=== PATIENT | female | born 1955 | race African-American/Black ===

== ENCOUNTER 2020-06-10 05:48 | Inpatient (IN) | payer MEDICAID, OTHER ==
[2020-06-10] VITALS (43 sets, daily range): BP systolic 86–178; BP diastolic 55–88
[~2020-06-10] VITALS: Ht 165.1 cm; Wt 80.9 kg
[2020-06-10 06:19] LABS: BASOPHILS % 0.5 % (0.0-2.0); EOSINOPHILS % 1.1 % (0.0-5.0); HEMATOCRIT. 58.6 % (36.0-48.0); HEMOGLOBIN. 18.3 g/dL (12.0-16.0); LYMPHOCYTES % 64.1 % (20.0-50.0); MEAN CORPUSCULAR HEMOGLOBIN 29.5 pg (28.0-32.0); MEAN CORPUSCULAR VOLUME 94.2 fL (81.0-99.0); MONOCYTES % 9.4 % (2.0-8.0); NEUTROPHILS % 24.9 % (40.0-76.0); PLATELET 275 x1000/uL (130-400); RED BLOOD CELL COUNT 6.22 mill/uL (4.2-5.4); RED CELL DISTRIBUTION WIDTH 14.7 % (11.6-14.6)
[2020-06-10] MEDS ORDERED: PROPOFOL 10MG/ML 100ML 100 ML IV ONE (06:30)
[2020-06-10] MEDS ORDERED: SUCCINYLCHOLINE CHLORIDE 200MG/10ML IV ONE (06:30)
[2020-06-10] MEDS ORDERED: ETOMIDATE 2MG/ML 10ML VIAL IV ONE (06:30)
[2020-06-10 06:36] LABS: CHLORIDE 106 mEq/L (98-107)
[2020-06-10] MEDS ORDERED: KCL 20MEQ/100ML PREMIX 100 ML IV ONE (07:00)
[2020-06-10] MEDS ORDERED: FENTANYL CITRATE/PF 1,000 MCG in SODIUM CHLORIDE 0.9% 80 ML IV PRN (07:30)
[2020-06-10] MEDS ORDERED: FENTANYL CITRATE 2,500 MCG in SODIUM CHLORIDE 0.9% 200 ML IV PRN (07:45)
[2020-06-10] MEDS ORDERED: LIDOCAINE HCL 1% 20ML VIAL (Pyxis) INJ ONE (10:20)
[2020-06-10] MEDS ORDERED: ONDANSETRON HCL 4MG/2ML INJ IV PRN (12:45)
[2020-06-10] MEDS ORDERED: IPRATROPIUM/ALBUTEROL 0.5-3(2.5)MG/3ML NEB HHN PRN ×2 (12:45→13:15)
[2020-06-10] MEDS ORDERED: ACETAMINOPHEN 650MG SUPP PR PRN ×2 (12:45)
[2020-06-10] MEDS ORDERED: DIPHENHYDRAMINE 50MG/ML VIAL IV PRN (12:45)
[2020-06-10] MEDS ORDERED: LORAZEPAM 2MG/ML CPJ IV PRN (12:45)
[2020-06-10 12:53] LABS: BG BASE EXCESS -3.3 mmol/L (-2.0-2.0); BG CARBOXYHEMOGLOBIN 0.3 % (0.5-1.5); BG DEOXYHEMOGLOBIN 0.7 % (0.0-5.0); BG METHEMOGLOBIN 0.3 % (0.0-1.5); BG OXYGEN SATURATION 99.3 % (92.0-98.5); BG OXYHEMOGLOBIN 98.7 % (94.0-97.0); BG PCO2 35.9 mmHg (35.0-45.0); BG PH 7.384 (7.350-7.450); BG PO2 283.2 mmHg (75.0-100.0); BG SAMPLE SITE RIGHT RADIAL; BG TOTAL HEMOGLOBIN 16.6 g/dL (12.0-18.0); BG VENT MODE VENT - AC
[2020-06-10] MEDS: ENOXAPARIN 40MG/0.4ML SYR SUBCUT SCH (14:10)
[2020-06-10] MEDS: IPRATROPIUM/ALBUTEROL 0.5-3(2.5)MG/3ML NEB HHN SCH (14:33)
[2020-06-10] MEDS: PROPOFOL 10MG/ML 100ML 100 ML IV PRN ×3 (15:17→23:55)
[2020-06-10] MEDS: DEXT 5%/0.45% NACL KCL 40MEQ/L 1,000 ML IV SCH (16:28)
[2020-06-10 17:15] LABS: CLARITY URINE TURBID (CLEAR); COLOR URINE YELLOW (YELLOW); KETONES URINE TRACE (NEGATIVE); LEUKOCYTE ESTERASE URINE 2+ (NEGATIVE); NITRITE URINE NEGATIVE (NEGATIVE); OCCULT BLOOD URINE 3+ (NEGATIVE); PROTEIN URINE 1+ (NEGATIVE); SPECIFIC GRAVITY URINE 1.027 (1.005-1.030); UROBILINOGEN URINE 0.2 E.U./dL (0.2-1.0)
[2020-06-10] MEDS: FUROSEMIDE 40MG/4ML VIAL IVP SCH (17:15)
[2020-06-10 17:33] LABS: *AMPHETAMINES SCREEN URINE NEGATIVE (NEGATIVE); *BARBITURATES SCREEN URINE NEGATIVE (NEGATIVE); *BENZODIAZEPINES SCREEN URINE NEGATIVE (NEGATIVE); *COCAINE SCREEN URINE NEGATIVE (NEGATIVE); METHADONE URINE SCREEN NEGATIVE (NEGATIVE); OPIATES URINE SCREEN NEGATIVE (NEGATIVE)
[2020-06-10 17:34] LABS: CANNABINOID URINE SCREEN NEGATIVE (NEGATIVE); PHENCYCLIDINE URINE SCREEN NEGATIVE (NEGATIVE)
[2020-06-10 20:14] LABS: PROTHROMBIN TIME 11.2 sec (9.6-11.0)
[2020-06-11] VITALS (58 sets, daily range): BP systolic 82–172; BP diastolic 52–85
[2020-06-11] MEDS: IPRATROPIUM/ALBUTEROL 0.5-3(2.5)MG/3ML NEB HHN SCH ×4 (00:43→20:30)
[2020-06-11] MEDS: PROPOFOL 10MG/ML 100ML 100 ML IV PRN ×3 (03:59→18:17)
[2020-06-11 06:17] LABS: BASOPHILS % 0.5 % (0.0-2.0); EOSINOPHILS % 0.4 % (0.0-5.0); HEMATOCRIT. 41.7 % (36.0-48.0); LYMPHOCYTES % 19.5 % (20.0-50.0); MEAN CORPUSCULAR HEMOGLOBIN 29.6 pg (28.0-32.0); MEAN PLATELET VOLUME 8.6 fl (7.4-10.4); NEUTROPHILS % 69.6 % (40.0-76.0); PLATELET 201 x1000/uL (130-400); RED BLOOD CELL COUNT 4.74 mill/uL (4.2-5.4); RED CELL DISTRIBUTION WIDTH 14.5 % (11.6-14.6)
[2020-06-11 06:32] LABS: CHLORIDE 108 mEq/L (98-107)
[2020-06-11 06:41] LABS: PHOSPHORUS 3.1 mg/dL (2.5-4.9)
[2020-06-11] MEDS: FUROSEMIDE 40MG/4ML VIAL IVP SCH ×2 (08:23→17:22)
[2020-06-11 08:47] LABS: BG CARBOXYHEMOGLOBIN 0.2 % (0.5-1.5); BG FRACTION INSPIRED OXYGEN 40; BG HCO3 ACT 20.5 mmol/L (22.0-26.0); BG METHEMOGLOBIN 0.2 % (0.0-1.5); BG OXYHEMOGLOBIN 97.6 % (94.0-97.0); BG PCO2 32.5 mmHg (35.0-45.0); BG PH 7.418 (7.350-7.450); BG PO2 107.4 mmHg (75.0-100.0); BG SAMPLE SITE RIGHT BRACHIAL; BG TOTAL HEMOGLOBIN 14.9 g/dL (12.0-18.0); BG VENT MODE VENT - AC
[2020-06-11] MEDS: ENOXAPARIN 40MG/0.4ML SYR SUBCUT SCH (09:35)
[2020-06-11] MEDS ORDERED: ENOXAPARIN 40MG/0.4ML SYR SUBCUT SCH (10:00)
[2020-06-11] MEDS: ASPIRIN 81MG EC TABLET PO SCH (10:21)
[2020-06-11] MEDS: DEXT 5%/0.45% NACL KCL 40MEQ/L 1,000 ML IV SCH (12:38)
[2020-06-11] MEDS: FENTANYL CITRATE/PF 2,500 MCG in SODIUM CHLORIDE 0.9% 200 ML IV PRN (12:38)
[2020-06-11] MEDS ORDERED: PROPOFOL 10MG/ML 100ML 100 ML IV PRN (18:15)
[2020-06-11] MEDS: ATORVASTATIN CALCIUM 40MG TABLET PO SCH (20:45)
[2020-06-11] MEDS ORDERED: ACETAMINOPHEN 650MG/20.3ML UDC PO PRN (20:45)
[2020-06-11] MEDS: ENOXAPARIN 80MG/0.8ML SYR SUBCUT SCH (20:46)
[2020-06-11] MEDS ORDERED: ACETAMINOPHEN 650MG/20.3ML UDC ONE (20:52)
[2020-06-11] MEDS: ACETAMINOPHEN 650MG/20.3ML UDC PO PRN (21:00)
[2020-06-12] VITALS (51 sets, daily range): BP systolic 84–213; BP diastolic 47–131
[2020-06-12] MEDS: IPRATROPIUM/ALBUTEROL 0.5-3(2.5)MG/3ML NEB HHN SCH ×4 (03:11→19:54)
[2020-06-12] MEDS: PROPOFOL 10MG/ML 100ML 100 ML IV PRN ×2 (03:36→08:29)
[2020-06-12] MEDS: DEXT 5%/0.45% NACL KCL 40MEQ/L 1,000 ML IV SCH (03:53)
[2020-06-12 05:52] LABS: BASOPHILS % 0.7 % (0.0-2.0); EOSINOPHILS % 0.4 % (0.0-5.0); HEMATOCRIT. 39.8 % (36.0-48.0); HEMOGLOBIN. 13.4 g/dL (12.0-16.0); LYMPHOCYTES % 15.9 % (20.0-50.0); MEAN CORPUSCULAR HEMOGLOBIN 29.9 pg (28.0-32.0); MEAN CORPUSCULAR VOLUME 88.6 fL (81.0-99.0); MEAN PLATELET VOLUME 9.2 fl (7.4-10.4); MONOCYTES % 10.9 % (2.0-8.0); NEUTROPHILS % 72.1 % (40.0-76.0); PLATELET 177 x1000/uL (130-400); RED BLOOD CELL COUNT 4.49 mill/uL (4.2-5.4); RED CELL DISTRIBUTION WIDTH 14.6 % (11.6-14.6)
[2020-06-12 05:58] LABS: CHLORIDE 106 mEq/L (98-107)
[2020-06-12] MEDS: ACETAMINOPHEN 650MG/20.3ML UDC PO PRN (07:16)
[2020-06-12] MEDS: FENTANYL CITRATE/PF 2,500 MCG in SODIUM CHLORIDE 0.9% 200 ML IV PRN (08:27)
[2020-06-12] MEDS: ENOXAPARIN 80MG/0.8ML SYR SUBCUT SCH ×2 (08:30→20:30)
[2020-06-12] MEDS: FUROSEMIDE 40MG/4ML VIAL IVP SCH ×2 (08:30→16:10)
[2020-06-12] MEDS: ASPIRIN 81MG EC TABLET PO SCH (08:32)
[2020-06-12 09:14] LABS: BG BASE EXCESS -1.5 mmol/L (-2.0-2.0); BG CARBOXYHEMOGLOBIN 1.1 % (0.5-1.5); BG DEOXYHEMOGLOBIN 1.2 % (0.0-5.0); BG FRACTION INSPIRED OXYGEN 35; BG HCO3 ACT 22.7 mmol/L (22.0-26.0); BG METHEMOGLOBIN 0.3 % (0.0-1.5); BG OXYGEN SATURATION 98.8 % (92.0-98.5); BG OXYHEMOGLOBIN 97.4 % (94.0-97.0); BG PCO2 36.7 mmHg (35.0-45.0); BG PH 7.409 (7.350-7.450); BG PO2 127.5 mmHg (75.0-100.0); BG SAMPLE SITE RIGHT BRACHIAL; BG TOTAL HEMOGLOBIN 13.7 g/dL (12.0-18.0); BG VENT MODE VENT - AC
[2020-06-12] MEDS ORDERED: KCL 10MEQ/50ML PREMIX 50 ML IV ONE ×2 (09:30→10:45)
[2020-06-12 12:56] LABS: BG BASE EXCESS 0.4 mmol/L (-2.0-2.0); BG CARBOXYHEMOGLOBIN 0.2 % (0.5-1.5); BG DEOXYHEMOGLOBIN 4.9 % (0.0-5.0); BG FRACTION INSPIRED OXYGEN 35; BG METHEMOGLOBIN 0.4 % (0.0-1.5); BG OXYGEN SATURATION 95.1 % (92.0-98.5); BG OXYHEMOGLOBIN 94.5 % (94.0-97.0); BG PCO2 45.2 mmHg (35.0-45.0); BG PH 7.377 (7.350-7.450); BG PO2 74.4 mmHg (75.0-100.0); BG SAMPLE SITE RIGHT RADIAL; BG TOTAL HEMOGLOBIN 15.7 g/dL (12.0-18.0); BG VENT MODE VENT - CPAP
[2020-06-12] MEDS ORDERED: HYDRALAZINE 20MG/ML VIAL IV PRN (15:15)
[2020-06-12] MEDS: LISINOPRIL 10MG TABLET PO SCH ×2 (15:26→20:26)
[2020-06-12] MEDS: CARVEDILOL 12.5MG TABLET PO SCH ×2 (15:26→20:27)
[2020-06-12] MEDS: ATORVASTATIN CALCIUM 40MG TABLET PO SCH (20:25)
[2020-06-13] VITALS (35 sets, daily range): BP systolic 98–144; BP diastolic 52–86
[2020-06-13] MEDS: IPRATROPIUM/ALBUTEROL 0.5-3(2.5)MG/3ML NEB HHN SCH ×3 (00:56→13:10)
[2020-06-13] MEDS: DEXT 5%/0.45% NACL KCL 40MEQ/L 1,000 ML IV SCH ×2 (04:02→20:50)
[2020-06-13] MEDS: FUROSEMIDE 40MG/4ML VIAL IVP SCH ×2 (06:15→16:53)
[2020-06-13 06:49] LABS: BASOPHILS % 0.6 % (0.0-2.0); EOSINOPHILS % 0.7 % (0.0-5.0); HEMOGLOBIN. 13.3 g/dL (12.0-16.0); LYMPHOCYTES % 14.3 % (20.0-50.0); MEAN CORPUSCULAR HEMOGLOBIN 30.9 pg (28.0-32.0); MEAN CORPUSCULAR VOLUME 88.3 fL (81.0-99.0); MEAN PLATELET VOLUME 9.3 fl (7.4-10.4); NEUTROPHILS % 76.4 % (40.0-76.0); PLATELET 178 x1000/uL (130-400); RED CELL DISTRIBUTION WIDTH 14.5 % (11.6-14.6)
[2020-06-13 07:11] LABS: CHLORIDE 107 mEq/L (98-107)
[2020-06-13] MEDS: ASPIRIN 81MG EC TABLET PO SCH (09:29)
[2020-06-13] MEDS: CARVEDILOL 12.5MG TABLET PO SCH ×2 (09:29→21:00)
[2020-06-13] MEDS: LISINOPRIL 10MG TABLET PO SCH ×2 (09:30→21:00)
[2020-06-13] MEDS: ENOXAPARIN 80MG/0.8ML SYR SUBCUT SCH (09:30)
[2020-06-13] MEDS: ATORVASTATIN CALCIUM 40MG TABLET PO SCH (20:49)
[2020-06-13] MEDS: THROAT LOZENGES-BENZOCAINE/MENTH/CETYLPYRD CL LOZENGES MM PRN (20:50)
[2020-06-13] MEDS ORDERED: IPRATROPIUM/ALBUTEROL 0.5-3(2.5)MG/3ML NEB HHN SCH (22:00)
[2020-06-14] VITALS: BP 115/76
[2020-06-14] MEDS: THROAT LOZENGES-BENZOCAINE/MENTH/CETYLPYRD CL LOZENGES MM PRN (01:22)
[2020-06-14 02:00] VITALS: BP 135/99
[2020-06-14 04:00] VITALS: BP 118/61
[2020-06-14 06:00] VITALS: BP 133/68
[2020-06-14 07:06] LABS: BASOPHILS % 0.6 % (0.0-2.0); EOSINOPHILS % 2.2 % (0.0-5.0); HEMATOCRIT. 41.1 % (36.0-48.0); LYMPHOCYTES % 27.9 % (20.0-50.0); MEAN CORPUSCULAR HEMOGLOBIN 30.4 pg (28.0-32.0); MEAN CORPUSCULAR VOLUME 89.4 fL (81.0-99.0); MEAN PLATELET VOLUME 9.1 fl (7.4-10.4); MONOCYTES % 13.4 % (2.0-8.0); NEUTROPHILS % 55.9 % (40.0-76.0); PLATELET 217 x1000/uL (130-400); RED CELL DISTRIBUTION WIDTH 14.2 % (11.6-14.6)
[2020-06-14] MEDS: FUROSEMIDE 40MG/4ML VIAL IVP SCH ×2 (07:15→09:07)
[2020-06-14 07:39] LABS: CHLORIDE 102 mEq/L (98-107)
[2020-06-14 08:06] VITALS: BP 108/67
[2020-06-14] MEDS ORDERED: ENOXAPARIN 40MG/0.4ML SYR SUBCUT SCH (09:00)
[2020-06-14] MEDS: ASPIRIN 81MG EC TABLET PO SCH (09:07)
[2020-06-14] MEDS: LISINOPRIL 10MG TABLET PO SCH (09:08)
[2020-06-14] MEDS: CARVEDILOL 12.5MG TABLET PO SCH (09:08)
== END 2020-06-14 09:50 | disposition left against medical advice (07) | DRG 190 ==
LOC: ER 05:48 → MICUSO 06:44 → EDBEDREQSVC 06:46 → EDBEDREQ 06:46 → EDBEDREQTM 06:46 → ENRESERV 11:32 → MICUSO 12:56 → CVICU 06-11 04:20 → 3WST 06-13 23:10
PROVIDERS: ADMIT Internal Medicine; ATTEND Internal Medicine
PROC: 5A1945Z Respiratory Ventilation, 24-96 Consecutive Hours (ICD-10-PCS; principal; 2020-06-10)
PROC: 05HY33Z Insertion of Infusion Device into Upper Vein, Percutaneous Approach (ICD-10-PCS; 2020-06-10)
PROC: B54MZZA Ultrasonography of Right Upper Extremity Veins, Guidance (ICD-10-PCS; 2020-06-10)
PROC: 0BH17EZ Insertion of Endotracheal Airway into Trachea, Via Natural or Artificial Opening (ICD-10-PCS; 2020-06-10)
DX: I21.4 Non-ST elevation (NSTEMI) myocardial infarction (principal); J96.01 Acute respiratory failure with hypoxia; G93.40 Encephalopathy, unspecified; I50.23 Acute on chronic systolic (congestive) heart failure; I11.0 Hypertensive heart disease with heart failure; E78.00 Pure hypercholesterolemia, unspecified; E78.5 Hyperlipidemia, unspecified; E87.6 Hypokalemia; I44.7 Left bundle-branch block, unspecified; I42.9 Cardiomyopathy, unspecified; I31.3 Pericardial effusion (noninflammatory); Z53.21 Procedure and treatment not carried out due to patient leaving prior to being seen by health care provider; Z78.1 Physical restraint status; Z86.73 Personal history of transient ischemic attack (TIA), and cerebral infarction without residual deficits; Z20.822 Contact with and (suspected) exposure to COVID-19
CPT/HCPCS: 36415; 36600; 71045; 71275; 76937; 80048; 80053; 80305; 81003; 82375; 82805; 82962; 83735; 83880; 84100; 84478; 84484; 85025; 87070; 93005; 93306; 93970; 94002; 94003; 94640; 99291; C1725; J0330; J1650; J1940; J2704; J3010; J3480; J3490; J7050; U0003